=== PATIENT | male | born 1965 | race Hispanic/Latino ===

== ENCOUNTER 2021-04-12 02:14 | Inpatient (IN) | payer SELFPAY ==
[2021-04-12] MEDS ORDERED: ONDANSETRON 4 MG/2 ML INJ IV ONE (02:20)
[2021-04-12] MEDS ORDERED: NITROGLYCERIN 2% OINT 1 GM TP ONE (02:20)
[2021-04-12] MEDS ORDERED: fentaNYL 100 MCG/2 ML INJ IV ONE (02:20)
--- NOTE | 2021-04-12 02:27 | Emergency Department Report ---
HPI - General Chief Complaint: Chest Pain Time Seen by Provider: 04/12/21 02:19 - [facility] HPI: Room 2 The patient is a 55-year-old male present with a chief complaint chest pain and syncope. Patient states he developed left-sided chest pain earlier this af ternoon associated with shortness of breath and nausea without vomiting. The patient states he has had 3-4 syncopal episodes today, all occurring after he stands up to walk somewhere. EMS was called and administered aspirin and fentanyl. Patient currently gets his chest pain score of 10/10 ED Past Medical Hx - Past Medical History Hx Hypertension: Yes Hx Diabetes: Yes - Surgical History Past Surgical History?: No - Social History Smoking Status: Former Smoker Substance Use Type: None (Denies illicit drug use) - Medications Home Medications: Home Medications Medication Instructions Recorded Confirmed Last Taken Type Amlodipine/Valsartan/Hcthiazid 1 tab PO DAILY 08/21/13 08/21/13 08/20/13 History [Exforge Hct 10-160-12.5 mg Tab] HYDROcodone/APAP 7.5-325 [[place] 1 each PO Q6HR PRN #20 tablet 08/21/13 Unknown Rx 7.5/325 mg] Varenicline Tartrate [Chantix] 1 each PO DAILY 08/21/13 08/21/13 08/20/13 History buPROPion [Wellbutrin] 100 mg PO DAILY 08/21/13 08/21/13 08/20/13 History ED Review of Systems ROS: Stated complaint: STEMI Other details as noted in HPI Constitutional: no symptoms reported Eyes: denies: eye pain ENT: denies: throat pain Respiratory: shortness of breath Cardiovascular: chest pain Endocrine: no symptoms reported Gastrointestinal: abdominal pain, nausea. denies: vomiting Genitourinary: denies: dysuria Musculoskeletal: denies: back pain Neurological: denies: headache Physical Exam - Physical Exam Physical Exam: GENERAL: The patient is well-developed well-nourished male lying on stretcher not appearing to be in acute distress. [] HEENT: Normocephalic. Atraumatic. Extraocular motions are intact. Patient has moist mucous membranes. NECK: Supple. Trachea midline CHEST/LUNGS: Clear to auscultation. There is no respiratory distress noted. HEART/CARDIOVASCULAR: Regular. There is no tachycardia. There is no gallop rub or murmur. ABDOMEN: Abdomen is soft, nontender. Patient has normal bowel sounds. There is no abdominal distention. SKIN: There is no rash. There is no edema. There is no diaphoresis. NEURO: The patient is awake, alert, and oriented. The patient is cooperative. The patient has no focal neurologic deficits. The patient has normal speech. GCS 15 MUSCULOSKELETAL: There is no evidence of acute injury. ED Medical Decision Making - Lab Data Result diagrams: 04/12/21 02:25 04/12/21 02:25 - EKG Data -: EKG Interpreted by [place] EKG shows normal: sinus rhythm Rate: normal (98 bpm) - EKG Data When compared to previous EKG there are: previous EKG unavailable Interpretation: nonspecific ST-T wave kimberly, other (IVCD) - Radiology Data Radiology results: report reviewed (CT chest), image reviewed (CT chest) [facility] [place] [address] [id number] Cat Scan Report Signed Patient: LIANNE NGUYEN MR#: [id number] : 1965 Acct:[id number] Age/Sex: 55 / M ADM Date: 04/12/21 Loc: ED Attending Dr: Ordering Physician: NADIYA MELVIN MD Date of Service: 04/12/21 Procedure(s): CT angio chest Accession Number(s): [id number] cc: NADIYA MELVIN MD CTA CHEST WITH CONTRAST INDICATION / CLINICAL INFORMATION: Chest pain. . Knee and number. TECHNIQUE: Axial CT images were obtained through the chest after injection of IV contrast. 3 plane MIP and/or 3D reconstructions were produced. All CT scans at this location are performed using CT dose reduction for ALARA by means of automated exposure control. COMPARISON: CT of the abdomen and pelvis 08/21/2013 FINDINGS: VASCULAR FINDINGS: PULMONARY ARTERY: Pulmonary artery is enlarged measuring 4 cm. No filling defects compatible with pulmonary artery embolus is demonstrated.. THORACIC AORTA: No significant abnormality. CORONARY ARTERY CALCIFICATION: Moderate. NONVASCULAR FINDINGS: LOWER NECK:Soft tissues of the lower neck and thyroid demonstrate no significant abnormalities or acute findings. HEART: No significant abnormality. MEDIASTINUM / TANMAY: No significant abnormality. ESOPHAGUS: No significant abnormality. LYMPH NODES: No adenopathy within the axilla, mediastinum, or tanmay. LUNGS: No acute air space or interstitial disease. 5 mm pleural-based pulmonary nodule lateral segment right middle lobe. Nodule stable dating back to 2013. PLEURA: No pleural effusion. No pneumothorax. THORACIC SOFT TISSUES: No significant abnormality of the chest wall or upper thoracic musculature. BONES: No significant skeletal abnormalities. ADDITIONAL CHEST FINDINGS: None. UPPER ABDOMEN: No significant abnormality. Lipomatous atrophy of the pancreas. Prior cholecystectomy. IMPRESSION: 1. No CT evidence for pulmonary embolism. 2. No acute findings. 3. Single incidental pulmonary nodule(s) in the right middle lobe measuring 5 mm stable since 2013. Signer Name: Raina Ramirez II, MD Signed: 04/12/2021 4:25 AM Workstation Name: [id number] Transcribed By: ELBA Dictated By: RAINA RAMIREZ II, MD Electronically Authenticated By: RAINA RAMIREZ II, MD Signed Date/Time: 04/12/21424 DD/ 6 TD/TT: Print Cancel - Differential Diagnosis ACS, PE, pericarditis, GERD Critical care attestation.: If time is entered above; I have spent that time in minutes in the direct care of this critically ill patient, excluding procedure time. ED Disposition Clinical Impression: Chest pain, Syncope Disposition: ADMITTED INPATIENT Is pt being admited?: Yes Does the pt Need Aspirin: Yes Condition: Fair Instructions: Nonspecific Chest Pain, Adult, Syncope (ED) Time of Disposition: 04:32 (Hospitalist called (Dr. Flores)) Heart Score - HEART Score History: Moderately suspicious EKG: Non-specific Age: 45-65 Risk factors: 1-2 risk factors Troponin: < normal limit HEART Score: 4 - EKG Read Time Time EKG Completed: 02:17 EKG Read Time: 02:21
[2021-04-12 02:45] LABS: Basophils % (Auto) 0.4 % (0.0-1.8); Eosinophils # (Auto) 0.2 K/mm3 (0.0-0.4); Eosinophils % (Auto) 3.6 % (0.0-4.3); Lymphocytes # (Auto) 1.3 K/mm3 (1.2-5.4); Lymphocytes % (Auto) 19.7 % (13.4-35.0); Mean Corpuscular HGB Conc 32 % (32-34); Mean Corpuscular Volume 89 fl (84-94); Monocytes # (Auto) 0.5 K/mm3 (0.0-0.8); Monocytes % (Auto) 7.3 % (0.0-7.3); Platelet Count 195 K/mm3 (140-440); Red Blood Count 4.94 M/mm3 (3.65-5.03); Red Cell Distribution Width 14.6 % (13.2-15.2)
[2021-04-12] MEDS ORDERED: HYDROmorphone 1 MG/1 ML INJ IV ONE (02:59)
[2021-04-12 03:06] LABS: Creatine Kinase MB 1.2 ng/mL (0.0-4.0)
[2021-04-12 03:07] LABS: BUN/Creatinine Ratio 7; Blood Urea Nitrogen 7 mg/dL (9-20); Calcium 8.8 mg/dL (8.4-10.2); Hemolysis Index 6
[2021-04-12 03:15] LABS: Bilirubin,Urine NEG (Negative); Blood,Urine NEG (Negative); Color,Urine Colorless (Yellow); Mucus,Urine FEW /HPF; Protein,Urine <15 mg/dL mg/dL (Negative); Urobilinogen,Urine < 2.0 mg/dL (<2.0)
[2021-04-12 03:19] LABS: RBC,Urine < 1.0 /HPF (0.0-6.0); WBC,Urine < 1.0 /HPF (0.0-6.0)
[2021-04-12] MEDS ORDERED: SODIUM CHLORIDE 0.9% 1000 ML 1,000 ML IV ONE (03:26)
[2021-04-12] MEDS ORDERED: INSULIN REGULAR, HUMAN 100 UNITS/1 ML IV ONE (03:26)
[2021-04-12] MEDS ORDERED: MORPHINE 4 MG/1 ML INJ IV ONE (04:21)
--- NOTE | 2021-04-12 04:25 | Cat Scan Report ---
CTA CHEST WITH CONTRAST INDICATION / CLINICAL INFORMATION: Chest pain. . Knee and number. TECHNIQUE: Axial CT images were obtained through the chest after injection of IV contrast. 3 plane [place] P and/or 3D reconstructions were produced. All CT scans at this location are performed using CT dose reduction for ALARA by means of automated exposure control. COMPARISON: CT of the abdomen and pelvis 08/21/2013 FINDINGS: VASCULAR FINDINGS: PULMONARY ARTERY: Pulmonary artery is enlarged measuring 4 cm. No filling defects compatible with pul monary artery embolus is demonstrated.. THORACIC AORTA: No significant abnormality. CORONARY ARTERY CALCIFICATION: Moderate. NONVASCULAR FINDINGS: LOWER NECK:Soft tissues of the lower neck and thyroid demonstrate no significant abnormalities or acu te findings. HEART: No significant abnormality. MEDIASTINUM / MAXIMO: No significant abnormality. ESOPHAGUS: No significant abnormality. LYMPH NODES: No adenopathy within the axilla, mediastinum, or maximo. LUNGS: No acute air space or interstitial disease. 5 mm pleural-based pulmonary nodule lateral segmen t right middle lobe. Nodule stable dating back to 2013. PLEURA: No pleural effusion. No pneumothorax. THORACIC SOFT TISSUES: No significant abnormality of the chest wall or upper thoracic musculature. BONES: No significant skeletal abnormalities. ADDITIONAL CHEST FINDINGS: None. UPPER ABDOMEN: No significant abnormality. Lipomatous atrophy of the pancreas. Prior cholecystectomy. IMPRESSION: 1. No CT evidence for pulmonary embolism. 2. No acute findings. 3. Single incidental pulmonary nodule(s) in the right middle lobe measuring 5 mm stable since 2013. Signer Name: Delano Darden II, MD Signed: 04/12/2021 4:25 AM Workstation Name: [id number]
[2021-04-12] MEDS ORDERED: ASPIRIN 325 MG TAB PO ONE (04:32)
[2021-04-12] MEDS ORDERED: NITROGLYCERIN 0.4 MG TAB SUBL SL PRN (05:36)
[2021-04-12] MEDS ORDERED: ACETAMINOPHEN 325 MG TAB PO PRN (05:36)
[2021-04-12] MEDS ORDERED: traMADol 50 MG TAB PO PRN (05:36)
[2021-04-12] MEDS ORDERED: SODIUM CHLORIDE 0.9% 1000 ML 1,000 ML IV SCH (05:45)
--- NOTE | 2021-04-12 05:46 | History and Physical Report ---
History of Present Illness Date of examination: 04/12/21 Date of admission: 04/12/21 Chief complaint: Chest pain History of present illness: 55 years old male with history of hypertension and diabetes was brought to the hospital because of chest pain and syncope. Patient complained of left-sided chest pain which is 10/10 left-sided as needed shortness of breath and nausea without vomiting since this afternoon. Patient also complained of 3-4 syncopal episode today all occurring after he stands up to walk somewhere. In the emergency room initial cardiac enzyme is negative troponin is 0.010. Chest CTA shows no evidence of PE. But patient blood sugar was 884 subsequently patient was given insulin right now the blood sugar is 522. So going to admit the patient we will put the patient on chest pain pathway we also put the patient on Humalog sliding scale and consult diabetic education Past History Past Medical History: diabetes, hypertension Medications and Allergies Allergies Allergy/AdvReac Type Severity Reaction Status Date / Time No Known Allergies Allergy Verified 08/21/13 07:43 Home Medications Medication Instructions Recorded Confirmed Last Taken Type Amlodipine/Valsartan/Hcthiazid 1 tab PO DAILY 08/21/13 08/21/13 08/20/13 History [Exforge Hct 10-160-12.5 mg Tab] HYDROcodone/APAP 7.5-325 [[place] 1 each PO Q6HR PRN #20 tablet 08/21/13 Unknown Rx 7.5/325 mg] Varenicline Tartrate [Chantix] 1 each PO DAILY 08/21/13 08/21/13 08/20/13 History buPROPion [Wellbutrin] 100 mg PO DAILY 08/21/13 08/21/13 08/20/13 History Review of Systems All systems: negative Constitutional: weakness Cardiovascular: chest pain, syncope, lightheadedness Exam - Constitutional Vitals: Temp Pulse Resp BP Pulse Ox 84 19 141/83 95 04/12/21 05:20 04/12/21 05:20 04/12/21 05:20 04/12/21 05:20 General appearance: Present: no acute distress, well-nourished - EENT Eyes: Present: PERRL ENT: hearing intact, clear oral mucosa - Neck Neck: Present: supple, normal ROM - Respiratory Respiratory effort: normal Respiratory: bilateral: CTA - Cardiovascular Heart Sounds: Present: S1 & S2. Absent: rub, click - Extremities Extremities: pulses symmetrical, No edema Peripheral Pulses: within normal limits - Abdominal General gastrointestinal: Present: soft, non-tender, non-distended, normal bowel sounds Male genitourinary: Present: normal - Integumentary Integumentary: Present: clear, warm, dry - Musculoskeletal Musculoskeletal: gait normal, strength equal bilaterally - Psychiatric Psychiatric: appropriate mood/affect, intact judgment & insight - Neurologic Neurologic: CNII-XII intact, moves all extremities HEART Score - HEART Score EKG: Non-specific Age: 45-65 Risk factors: 1-2 risk factors Troponin: Troponin T < 0.010 ng/mL (0.00-0.029) 04/12/21 02:25 Troponin: < normal limit Results - Labs CBC & Chem 7: 04/12/21 02:25 04/12/21 02:25 Labs: Laboratory Last Values WBC 6.4 K/mm3 (4.5-11.0) 04/12/21 02:25 RBC 4.94 M/mm3 (3.65-5.03) 04/12/21 02:25 Hgb 14.0 gm/dl (11.8-15.2) 04/12/21 02:25 Hct 44.0 % (35.5-45.6) 04/12/21 02:25 MCV 89 fl (84-94) 04/12/21 02:25 MCH 28 pg (28-32) 04/12/21 02:25 MCHC 32 % (32-34) 04/12/21 02:25 RDW 14.6 % (13.2-15.2) 04/12/21 02:25 Plt Count 195 K/mm3 (140-440) 04/12/21 02:25 Lymph % (Auto) 19.7 % (13.4-35.0) 04/12/21 02:25 [place] % (Auto) 7.3 % (0.0-7.3) 04/12/21 02:25 Eos % (Auto) 3.6 % (0.0-4.3) 04/12/21 02:25 Baso % (Auto) 0.4 % (0.0-1.8) 04/12/21 02:25 Lymph # (Auto) 1.3 K/mm3 (1.2-5.4) 04/12/21 02:25 [place] # (Auto) 0.5 K/mm3 (0.0-0.8) 04/12/21 02:25 Eos # (Auto) 0.2 K/mm3 (0.0-0.4) 04/12/21 02:25 Baso # (Auto) 0.0 K/mm3 (0.0-0.1) 04/12/21 02:25 Seg Neutrophils % 69.0 % (40.0-70.0) 04/12/21 02:25 Seg Neutrophils # 4.4 K/mm3 (1.8-7.7) 04/12/21 02:25 D-Dimer 623.20 ng/mlDDU (0-234) H 04/12/21 02:25 VBG pH 7.349 (7.320-7.420) 04/12/21 02:25 Sodium 137 mmol/L (137-145) 04/12/21 02:25 Potassium 3.6 mmol/L (3.6-5.0) 04/12/21 02:25 Chloride 99.3 mmol/L (98-107) 04/12/21 02:25 Carbon Dioxide 18 mmol/L (22-30) L 04/12/21 02:25 Anion Gap 23 mmol/L 04/12/21 02:25 BUN 7 mg/dL (9-20) L 04/12/21 02:25 Creatinine 1.0 mg/dL (0.8-1.3) 04/12/21 02:25 Estimated GFR > 60 ml/min 04/12/21 02:25 BUN/Creatinine Ratio 7 % 04/12/21 02:25 Glucose 884 mg/dL (75-100) H* 04/12/21 02:25 POC Glucose 522 mg/dL (70-105) H 04/12/21 05:17 Calcium 8.8 mg/dL (8.4-10.2) 04/12/21 02:25 Total Creatine Kinase 61 units/L (55-170) 04/12/21 02:25 CK-MB (CK-2) 1.2 ng/mL (0.0-4.0) 04/12/21 02:25 CK-MB (CK-2) Rel Index 1.9 (0-4) 04/12/21 02:25 Troponin T < 0.010 ng/mL (0.00-0.029) 04/12/21 02:25 Urine Color Colorless (Yellow) 04/12/21 Unknown Urine Turbidity Clear (Clear) 04/12/21 Unknown Urine pH 6.0 (5.0-7.0) 04/12/21 Unknown Ur Specific [place] 1.025 (1.003-1.030) 04/12/21 Unknown Urine Protein <15 mg/dl mg/dL (Negative) 04/12/21 Unknown Urine Glucose (UA) >=500 mg/dL (Negative) 04/12/21 Unknown Urine Ketones Neg mg/dL (Negative) 04/12/21 Unknown Urine Blood Neg (Negative) 04/12/21 Unknown Urine Nitrite Neg (Negative) 04/12/21 Unknown Urine Bilirubin Neg (Negative) 04/12/21 Unknown Urine Urobilinogen < 2.0 mg/dL (<2.0) 04/12/21 Unknown Ur Leukocyte Esterase Neg (Negative) 04/12/21 Unknown Urine WBC (Auto) < 1.0 /HPF (0.0-6.0) 04/12/21 Unknown Urine RBC (Auto) < 1.0 /HPF (0.0-6.0) 04/12/21 Unknown Urine Mucus Few /HPF 04/12/21 Unknown - Imaging and Cardiology CT scan - chest: report reviewed Assessment and Plan VTE prophylaxis?: Chemical Plan of care discussed with patient/family: Yes - Patient Problems (1) ACS (acute coronary syndrome) Current Visit: Yes Status: Acute Plan to address problem: Admit the patient to the medical telemetry. Aspirin 325 mg p.o. daily. Lipitor 40 mg p.o. daily. Normal saline at the rate of 100 cc/h. Serial cardiac enzyme. Echocardiogram. Consult cardiology if needed (2) Hypertension Current Visit: Yes Status: Acute Plan to address problem: Hydralazine 10 mg IV every 6 hours as needed. We continue the home medication (3) Diabetes Current Visit: Yes Status: Acute Plan to address problem: Humalog sliding scale Accu-Chek every 6 hours with high dose insulin coverage. Diabetic education (4) Syncope Current Visit: Yes Status: Acute Plan to address problem: Aspirin 325 mg p.o. daily. Lipitor 40 mg p.o. daily. Normal saline at the rate of 100 cc/h. Serial cardiac enzyme. Echocardiogram. Consult cardiology if needed (5) DVT prophylaxis Current Visit: Yes Status: Acute Plan to address problem: Heparin 5000 units subcu every 8 hours for DVT prophylaxis. Protonix 40 mg p.o. daily for GI prophylaxis. Patient is a full code
[2021-04-12] MEDS ORDERED: DEXTROSE 10% *Hypoglycemia IV PRN (05:51)
[2021-04-12] MEDS: INSULIN LISPRO 100 UNIT/ML SUB-Q SCH ×2 (06:27→13:50)
[2021-04-12] MEDS: MORPHINE 2 MG/1 ML INJ IV PRN ×4 (06:32→20:13)
--- NOTE | 2021-04-12 09:04 | Electrocardiograph Report ---
[facility] [place] Test Date: 2021-04-12 Test Time: 02:17:25 Pat Name: LIANNE NGUYEN Department: Room: A464 Gender: M [place] Worker: JESSICA : 1965 Requested By: NADIYA MELVIN Order Number: [id number] Reading MD: Jimbo Zarate Measurements Intervals [place] Rate: 98 P: 30 [place]: 155 QRS: -85 QRSD: 157 T: 60 QT: 385 QTc: 491 Interpretive Statements Sinus rhythm RBBB and LAFB ST elevation secondary to IVCD No previous ECG available for comparison Electronically Signed On 04-12-2021 9:04:31 EST by Jimbo Zarate
[2021-04-12] MEDS ORDERED: VARENICLINE TARTRATE PO SCH (10:00)
[2021-04-12] MEDS ORDERED: VALSARTAN PO SCH (10:00)
[2021-04-12] MEDS ORDERED: AMLODIPINE PO SCH (10:00)
[2021-04-12] MEDS ORDERED: [UNRECOGNIZED DRUG - OTHER] PO SCH (10:00)
[2021-04-12] MEDS ORDERED: HCTHIAZID PO SCH (10:00)
[2021-04-12] MEDS: amLODIPine 10 MG TAB PO SCH (10:10)
[2021-04-12] MEDS: hydroCHLOROthiazide 12.5 MG CAP PO SCH (10:10)
[2021-04-12] MEDS: PANTOPRAZOLE 40 MG TAB PO SCH (10:10)
[2021-04-12] MEDS: VALSARTAN 160MG TAB PO SCH (10:10)
[2021-04-12] MEDS ORDERED: DEXTROSE 50% IN WATER (25GM) 50 ML SYRINGE IV PRN (12:31)
--- NOTE | 2021-04-12 12:31 | Event Note ---
Date: 04/12/21 The patient was seen and evaluated this morning, and he was found to be hemodynamically stable. The patient had been weaned off of supplemental oxygen. The patient is currently pending TTE to evaluate EF function, bilateral lower extremity Dopplers to further rule out DVT, coronavirus PCR, and cardiology evaluation.
--- NOTE | 2021-04-12 12:59 | Vascular Lab Report ---
DUPLEX DOPPLER LOWER EXTREMITY VEINS, BILATERAL INDICATION / CLINICAL INFORMATION: Concern for lower extremity DVT. TECHNIQUE: Duplex doppler imaging was performed through the veins of both lower extremities using yeny ous compression and other maneuvers. COMPARISON: None available. FINDINGS: RIGHT COMMON FEMORAL VEIN: Negative. RIGHT FEMORAL VEIN: Negative. RIGHT POPLITEAL VEIN: Negative. RIGHT CALF VEINS: Negative. LEFT COMMON FEMORAL VEIN: Negative. LEFT FEMORAL VEIN: Negative. LEFT POPLITEAL VEIN: Negative. LEFT CALF VEINS: Negative. ADDITIONAL FINDINGS: None. IMPRESSION: 1. No sonographic evidence for DVT in either lower extremity. Scribed by: Gita Basurto RDMS, RVT Scribed: 04/12/2021 10:37 AM I have reviewed the images, agree with this report, and edited this report as needed. Signer Name: Ramesh Gong MD Signed: 04/12/2021 12:54 PM Workstation Name: [id number]
--- NOTE | 2021-04-12 13:25 | Consultation ---
History of Present Illness Consult date: 04/12/21 Requesting physician: JOSELUIS NUÑEZ Consult reason: chest pain History of present illness: Patient is 55-year-old male with a past medical history of hypertension and diabetes who came to the ED with a complaint of chest pain and syncope with falls which started yesterday morning when getting out of bed. Patient reports that when he tried to get up out of bed yesterday he developed sudden chest pain that he describes as sharp and stabbing and he rated his pain 10 out of 10. He associated his pain with some shortness of breath and slight nausea. He reports he has had no relieving factors. And states the pain is worsened with palpation and deep breathing. Patient also reports that yesterday throughout the day he passed out around 3-4 time while walking around. Patient called EMS and was transported to [facility]. In the ED patient was noted to have blood sugar of 884 and troponins negative x1. At time of interview patient denies palpitations, diaphoresis, vomiting, or weakness. Patient was previously seen by Dr. Zarate of our group but has not been seen since 2018. Cardiology is consulted for chest pain. Past History Past Medical History: diabetes, hypertension Past Surgical History: No surgical history Social history: no significant social history Family history: diabetes Medications and Allergies Allergies Allergy/AdvReac Type Severity Reaction Status Date / Time No Known Allergies Allergy Verified 04/12/21 12:21 Home Medications Medication Instructions Recorded Confirmed Last Taken Type Insulin NPH Hum/Reg Insulin Hm 20 unit SQ QID 04/12/21 04/12/21 Unknown History [Novolin 70-30 100 Unit/ml Vial] amLODIPine/VALSARTAN [Exforge 1 tab PO DAILY 04/12/21 04/12/21 Unknown History 10-160 mg Tablet] cloNIDine [Catapres] 0.2 mg PO BID 04/12/21 04/12/21 Unknown History hydroCHLOROthiazide 12.5 mg PO QDAY 04/12/21 04/12/21 Unknown History [Hydrochlorothiazide] Active Meds: Active Medications Acetaminophen (Acetaminophen 325 Mg Tab) 650 mg PO Q6H PRN PRN Reason: Pain, Mild (1-3) Amlodipine Besylate (Amlodipine 10 Mg Tab) 10 mg PO DAILY KIAH Last Admin: 04/12/21 10:10 Dose: Not Given Aspirin (Aspirin Ec 325 Mg Tab) 325 mg PO QDAY [facility] Atorvastatin Calcium (Atorvastatin 40 Mg Tab) 40 mg PO QHS [facility] Dextrose (Dextrose 10% *Hypoglycemia) 0 ml IV DIRECT PRN; Protocol PRN Reason: Hypoglycemia Hydrochlorothiazide (Hydrochlorothiazide 12.5 Mg Cap) 12.5 mg PO QDAY [facility] Last Admin: 04/12/21 10:10 Dose: Not Given Sodium Chloride (Nacl 0.9% 1000 Ml) 1,000 mls @ 75 mls/hr IV DIRECT [facility] Insulin Human Isoph/Insulin Regular (Insulin Nph/Regular 70/30 Inj) 20 unit SUB-Q BIDDIAB [facility] Insulin Human Regular (Insulin Regular, Human 100 Units/1 Ml) 0 units SUB-Q ACH S [facility]; Protocol Miscellaneous Medication (Varenicline Tartrate [Chantix]) 1 each PO DAILY [facility] Last Admin: 04/12/21 10:10 Dose: Not Given Morphine Sulfate (Morphine 2 Mg/1 Ml Inj) 2 mg IV Q4H PRN PRN Reason: Pain , Severe (7-10) Nitroglycerin (Nitroglycerin 0.4 Mg Tab Subl) 0.4 mg SL Q5M PRN PRN Reason: Chest Pain Pantoprazole Sodium (Pantoprazole 40 Mg Tab) 40 mg PO QDAY [facility] Last Admin: 04/12/21 10:10 Dose: Not Given Sodium Chloride (Sodium Chloride 0.9% 10 Ml Flush Syringe) 10 ml IV PRN PRN PRN Reason: LINE FLUSH Tramadol HCl (Tramadol 50 Mg Tab) 50 mg PO Q6H PRN PRN Reason: Pain, Moderate (4-6) Valsartan (Valsartan 160mg Tab) 160 mg PO QDAY [facility] Last Admin: 04/12/21 10:10 Dose: Not Given Review of Systems Constitutional: no weight loss, no weight gain Ears, nose, mouth and throat: no nasal discharge, no sinus pressure, no sinus pain Cardiovascular: chest pain, shortness of breath Respiratory: shortness of breath, dyspnea on exertion, no cough, no cough with sputum Gastrointestinal: nausea, no abdominal pain, no vomiting, no diarrhea Musculoskeletal: no neck stiffness, no neck pain Integumentary: no rash, no pruritis, no redness Neurological: syncope, no head injury, no transient paralysis Psychiatric: no anxiety, no memory loss Endocrine: no cold intolerance, no heat intolerance Hematologic/Lymphatic: no easy bruising, no easy bleeding Physical Examination Vital Signs Pulse Resp BP Pulse Ox 99 H 19 155/98 97 04/12/21 02:14 04/12/21 02:14 04/12/21 02:14 04/12/21 02:14 General appearance: no acute distress HEENT: Positive: PERRL Neck: Positive: trachea midline Cardiac: Positive: Reg Rate and Rhythm Lungs: Positive: Normal Breath Sounds Neuro: Positive: Grossly Intact Abdomen: Positive: Soft, Active Bowel Sounds Skin: Negative: Rash, Suspicious Lesions, Ulceration Extremities: Present: upper extr. pulses. Absent: edema Results 04/12/21 02:25 04/12/21 02:25 Cardiac Enzymes 04/12/21 Range/Units 02:25 CK-MB (CK-2) 1.2 (0.0-4.0) ng/mL CBC 04/12/21 Range/Units 02:25 WBC 6.4 (4.5-11.0) K/mm3 RBC 4.94 (3.65-5.03) M/mm3 Hgb 14.0 (11.8-15.2) gm/dl Hct 44.0 (35.5-45.6) % Plt Count 195 (140-440) K/mm3 Lymph # (Auto) 1.3 (1.2-5.4) K/mm3 [place] # (Auto) 0.5 (0.0-0.8) K/mm3 Eos # (Auto) 0.2 (0.0-0.4) K/mm3 Baso # (Auto) 0.0 (0.0-0.1) K/mm3 Comprehensive Metabolic Panel 04/12/21 Range/Units 02:25 Sodium 137 (137-145) mmol/L Potassium 3.6 (3.6-5.0) mmol/L Chloride 99.3 (98-107) mmol/L Carbon Dioxide 18 L (22-30) mmol/L BUN 7 L (9-20) mg/dL Creatinine 1.0 (0.8-1.3) mg/dL Glucose 884 H* (75-100) mg/dL Calcium 8.8 (8.4-10.2) mg/dL - Imaging and Cardiology Echo: pending, report reviewed EKG interpretations - Telemetry EKG Rhythm: Sinus Rhythm - EKG Sinus rhythms and dysrhythmias: sinus rhythm AV and intraventricular conduction: right bundle branch block, left anterior fascicular Assessment and Plan Patient is 55-year-old male with a past medical history of hypertension and diabetes who came to the ED with a complaint of chest pain and syncope with falls which started when getting out of bed 1 day prior to admission Atypical chest pain Hypertension Diabetes Elevated D-dimer-CT negative for PE Echo 12/17/2017-EF greater than 55%. Right ventricular systolic function is normal. Mild aortic regurgitation. Mild tricuspid regurgitation. Exercise stress test 03/12/2007: Negative nonischemic exercise stress test characterized by 1) adequate exercise capacity. The subject achieving 96% of his maximum predicted heart rate at an external work load of 11.8 mets. 2) Normal heart rate and BP response. 3) Absence of ischemic symptoms or diagnostic repolarization abnormalities. 4) Minor ventricular ectopy as described Plan: EKG shows sinus rhythm [address] elevation secondary to IVCD. No acute ischemic changes. Troponins negative x 1 repeat cardiac enzymes Chest pain is atypical and no relief with nitro glycerin and worsened with palpitation and deep breathing Agree with resumption of amlodipine, valsartan, hydrochlorothiazide Echo pending Patient for stress test in the a.m. N.p.o. after midnight Patient seen in conjunction with Dr. Zarate who agrees with this plan of care
[2021-04-12 14:15] LABS: Chol/HDL Ratio 4.23 %
[2021-04-12] MEDS: SODIUM CHLORIDE 0.9% 1000 ML 1,000 ML IV SCH (14:21)
[2021-04-12] MEDS: INSULIN REGULAR, HUMAN 100 UNITS/1 ML SUB-Q SCH ×2 (17:47→21:53)
[2021-04-12] MEDS: INSULIN NPH/REGULAR 70/30 INJ SUB-Q SCH (18:23)
[2021-04-13] MEDS: MORPHINE 2 MG/1 ML INJ IV PRN ×4 (00:12→20:36)
[2021-04-13] MEDS: SODIUM CHLORIDE 0.9% 1000 ML 1,000 ML IV SCH ×2 (04:24→22:43)
[2021-04-13] MEDS ORDERED: REGADENOSON 0.4 MG/5 ML INJ IV ONE (07:00)
[2021-04-13] MEDS: INSULIN REGULAR, HUMAN 100 UNITS/1 ML SUB-Q SCH ×4 (09:00→22:43)
--- NOTE | 2021-04-13 10:01 | Electrocardiograph Report ---
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
[2021-04-13] MEDS: INSULIN NPH/REGULAR 70/30 INJ SUB-Q SCH ×2 (10:43→20:39)
[2021-04-13] MEDS: VALSARTAN 160MG TAB PO SCH (11:27)
[2021-04-13] MEDS: ASPIRIN EC 325 MG TAB PO SCH (11:28)
[2021-04-13] MEDS: hydroCHLOROthiazide 12.5 MG CAP PO SCH (11:28)
[2021-04-13] MEDS: PANTOPRAZOLE 40 MG TAB PO SCH (11:28)
[2021-04-13] MEDS: amLODIPine 10 MG TAB PO SCH (11:29)
--- NOTE | 2021-04-13 11:34 | Progress Note ---
Assessment and Plan Patient is 55-year-old male with a past medical history of hypertension and diabetes who came to the ED with a complaint of chest pain and syncope with falls which started when getting out of bed 1 day prior to admission Atypical chest pain Hypertension Diabetes Elevated D-dimer-CT negative for PE Echo 04/12/2021-EF 45 to 50%. There is hypokinesis in the basal inferior septal wall. Mild concentric LVH. Transmitral Doppler flow pattern suggests impaired LV relaxation. Right ventricle is dilated. Right ventricular systolic function is no pericardial effusion Lexiscan MPI stress test 04/13/2021-abnormal stress test Echo 12/17/2017-EF greater than 55%. Right ventricular systolic function is normal. Mild aortic regurgitation. Mild tricuspid regurgitation. Exercise stress test 03/12/2007: Negative nonischemic exercise stress test characterized by 1) adequate exercise capacity. The subject achieving 96% of his maximum predicted heart rate at an external work load of 11.8 mets. 2) Normal heart rate and BP response. 3) Absence of ischemic symptoms or diagnostic repolarization abnormalities. 4) Minor ventricular ectopy as described Plan: EKG shows sinus rhythm [address] elevation secondary to IVCD. No acute ischemic changes. Troponins negative x 2. AMI ruled out Chest pain is atypical and no relief with nitro glycerin and worsened with palpitation and deep breathing Continue amlodipine, valsartan, hydrochlorothiazide, statin, aspirin Echo and stress test results noted above Due to abnormal stress test will plan for cardiac cath in the AM. N.p.o. after midnight Discussed plan of care with patient who verbalized and acknowledged understanding and agreement Patient seen in conjunction with Dr. Zarate who agrees with this plan of care - Patient Problems (1) ACS (acute coronary syndrome) Current Visit: Yes Status: Acute (2) Diabetes Current Visit: Yes Status: Acute (3) Hypertension Current Visit: Yes Status: Acute (4) Syncope Current Visit: Yes Status: Acute Subjective Date of service: 04/13/21 Principal diagnosis: chest pain Interval history: Patient for stress test this a.m. Patient was not on the monitor Objective Vital Signs Temp Pulse Resp BP Pulse Ox 04/13/21 09:47 171/91 04/13/21 09:45 174/91 04/13/21 09:43 162/88 04/13/21 09:42 171/97 04/13/21 09:40 156/89 04/13/21 09:10 155/84 04/13/21 08:51 154/83 04/13/21 07:55 97.4 F L 62 20 143/73 95 04/13/21 05:15 97.5 F L 65 6 L 140/80 97 04/13/21 01:09 98 04/13/21 00:42 20 04/12/21 23:35 97.5 F L 71 16 146/88 98 04/12/21 22:00 93 H 04/12/21 20:43 20 04/12/21 20:13 20 04/12/21 19:50 97.7 F 71 16 149/82 94 04/12/21 16:30 98 04/12/21 15:30 98.3 F 82 20 130/84 95 04/12/21 12:02 97.3 F L 71 20 128/72 95 - Physical Examination General: No Apparent Distress HEENT: Positive: PERRL Neck: Positive: trachea midline Cardiac: Positive: Reg Rate and Rhythm Neuro: Positive: Grossly Intact Abdomen: Positive: Soft, Active Bowel Sounds Skin: Negative: Rash, Suspicious Lesions, Ulceration Extremities: Present: upper extr. pulses. Absent: edema - Labs and Meds Lipids 04/12/21 Range/Units 13:19 Triglycerides 244 H (2-149) mg/dL Cholesterol 161 (50-199) mg/dL HDL Cholesterol 38 L (40-59) mg/dL Cholesterol/HDL Ratio 4.23 % - Imaging and Cardiology Echo: report reviewed - EKG Sinus rhythms and dysrhythmias: sinus rhythm AV and intraventricular conduction: right bundle branch block, left anterior fascicular
[2021-04-13] MEDS ORDERED: SODIUM CHLORIDE 0.9% 500 ML 500 ML IV SCH (12:00)
--- NOTE | 2021-04-13 13:01 | Treadmill Report ---
DATE OF SERVICE: 04/13/2021 NUCLEAR PERFUSION SCAN REFERRING PHYSICIAN: [facility]. PROTOCOL: The patient was assessed in postabsorptive state, given 10 mCi of technetium at rest. The patient had rest imaging. The patient underwent Lexiscan stress test per standard protocol. At peak stress, the patient given 26 mCi technetium. Shortly thereafter, the patient had stress imaging. Raw imaging reveals significant GI artifact, no motion artifact. There is a questionable moderate size reversible inferior defect, questionable GI artifact versus ischemia. Gated wall motion reveals normal systolic thickening, calculated ejection fraction 58% without TID. CONCLUSIONS: 1. Technically difficult study, but mildly abnormal with a medium size inferior reversible defect of unclear etiology, questionable mild ischemia. 2. Preserved left ventricular systolic performance. TID: [id number] RECEIPT: [id number] YUDITH/ALECIA
--- NOTE | 2021-04-13 16:40 | Progress Note ---
Assessment and Plan Assessment and plan: #Acute chest pain #Hypertension -Negative troponins x2 -TTE (04/12/2021) revealing EF 45-50% with hypokinesis in the basal inferior septal wall, mild concentric LVH, and Doppler flow pattern suggest impaired LV relaxation. Right ventricle is dilated. -Myocardial perfusion stress test (04/13/2021) revealed an abnormal stress test -Cardiology consulted; appreciate recs -Planning to have left heart catheterization in the morning -Continue amlodipine 10 mg daily, atorvastatin 40 mg daily, hydrochlorothiazide 12.5 mg daily, and valsartan 160 mg daily -Continue to monitor #Insulin dependent type II diabetes mellitus - hemoglobin A1c: 10.9 - home regimen: NPH 70-30 20 units daily - current regimen: NPH 70-30 30 twice daily and moderate SSI - blood glucose goal 140-180 while inpatient - continue to monitor #Morbid obesity #Weight loss counseling #Exercise counseling - BMI 39.7 - Counseled patient on the importance of weight loss, incorporating exercise, and dietary changes (lean meats, fresh fruits and vegetables, and water intake). Patient expresses understanding. - Time: +15 min #Advanced care planning -Disease education conducted, care plan discussed, diagnoses discussed, prognosis discussed, and patient acknowledges understanding with care plan -Time: +30 min Disposition Plan: Continue medical management Total Time Spent with Patient (Minutes): 45 minutes History Interval history: No acute events overnight. Hospitalist Physical - Constitutional Vitals: Temp Pulse Resp BP Pulse Ox 97.4 F L 72 20 171/91 95 04/13/21 07:55 04/13/21 11:29 04/13/21 07:55 04/13/21 09:47 04/13/21 07:55 General appearance: Present: no acute distress - EENT Eyes: Present: PERRL, EOM intact ENT: hearing intact, clear oral mucosa, dentition normal - Neck Neck: Present: supple, normal ROM - Respiratory Respiratory effort: normal Respiratory: bilateral: CTA - Cardiovascular Rhythm: regular Heart Sounds: Present: S1 & S2 - Extremities Extremities: no ischemia, pulses intact, pulses symmetrical, No edema, normal temperature, normal color, Full ROM Peripheral Pulses: within normal limits - Abdominal General gastrointestinal: soft, non-tender, non-distended, normal bowel sounds - Integumentary Integumentary: Present: clear, warm, dry - Psychiatric Psychiatric: appropriate mood/affect, intact judgment & insight, memory intact, cooperative - Neurologic Neurologic: CNII-XII intact, moves all extremities - Allied Health Allied health notes reviewed: nursing HEART Score - HEART Score EKG: Non-specific Age: 45-65 Risk factors: 1-2 risk factors Troponin: Troponin T < 0.010 ng/mL (0.00-0.029) 04/12/21 13:19 Troponin: < normal limit Results - Labs CBC & Chem 7: 04/12/21 02:25 04/12/21 02:25 Labs: Laboratory Last Values WBC 6.4 K/mm3 (4.5-11.0) 04/12/21 02:25 RBC 4.94 M/mm3 (3.65-5.03) 04/12/21 02:25 Hgb 14.0 gm/dl (11.8-15.2) 04/12/21 02:25 Hct 44.0 % (35.5-45.6) 04/12/21 02:25 MCV 89 fl (84-94) 04/12/21 02:25 MCH 28 pg (28-32) 04/12/21 02:25 MCHC 32 % (32-34) 04/12/21 02:25 RDW 14.6 % (13.2-15.2) 04/12/21 02:25 Plt Count 195 K/mm3 (140-440) 04/12/21 02:25 Lymph % (Auto) 19.7 % (13.4-35.0) 04/12/21 02:25 [place] % (Auto) 7.3 % (0.0-7.3) 04/12/21 02:25 Eos % (Auto) 3.6 % (0.0-4.3) 04/12/21 02:25 Baso % (Auto) 0.4 % (0.0-1.8) 04/12/21 02:25 Lymph # (Auto) 1.3 K/mm3 (1.2-5.4) 04/12/21 02:25 [place] # (Auto) 0.5 K/mm3 (0.0-0.8) 04/12/21 02:25 Eos # (Auto) 0.2 K/mm3 (0.0-0.4) 04/12/21 02:25 Baso # (Auto) 0.0 K/mm3 (0.0-0.1) 04/12/21 02:25 Seg Neutrophils % 69.0 % (40.0-70.0) 04/12/21 02:25 Seg Neutrophils # 4.4 K/mm3 (1.8-7.7) 04/12/21 02:25 D-Dimer 623.20 ng/mlDDU (0-234) H 04/12/21 02:25 VBG pH 7.349 (7.320-7.420) 04/12/21 02:25 Sodium 137 mmol/L (137-145) 04/12/21 02:25 Potassium 3.6 mmol/L (3.6-5.0) 04/12/21 02:25 Chloride 99.3 mmol/L (98-107) 04/12/21 02:25 Carbon Dioxide 18 mmol/L (22-30) L 04/12/21 02:25 Anion Gap 23 mmol/L 04/12/21 02:25 BUN 7 mg/dL (9-20) L 04/12/21 02:25 Creatinine 1.0 mg/dL (0.8-1.3) 04/12/21 02:25 Estimated GFR > 60 ml/min 04/12/21 02:25 BUN/Creatinine Ratio 7 % 04/12/21 02:25 Glucose 884 mg/dL (75-100) H* 04/12/21 02:25 POC Glucose 353 mg/dL (70-105) H 04/13/21 15:33 Hemoglobin A1c 10.9 % (4-6) H 04/12/21 13:19 Calcium 8.8 mg/dL (8.4-10.2) 04/12/21 02:25 Total Creatine Kinase 61 units/L (55-170) 04/12/21 02:25 CK-MB (CK-2) 1.2 ng/mL (0.0-4.0) 04/12/21 02:25 CK-MB (CK-2) Rel Index 1.9 (0-4) 04/12/21 02:25 Troponin T < 0.010 ng/mL (0.00-0.029) 04/12/21 13:19 Triglycerides 244 mg/dL (2-149) H 04/12/21 13:19 Cholesterol 161 mg/dL (50-199) 04/12/21 13:19 LDL Cholesterol Direct 88 mg/dL (50-130) 04/12/21 13:19 HDL Cholesterol 38 mg/dL (40-59) L 04/12/21 13:19 Cholesterol/HDL Ratio 4.23 % 04/12/21 13:19 Urine Color Colorless (Yellow) 04/12/21 Unknown Urine Turbidity Clear (Clear) 04/12/21 Unknown Urine pH 6.0 (5.0-7.0) 04/12/21 Unknown Ur Specific [place] 1.025 (1.003-1.030) 04/12/21 Unknown Urine Protein <15 mg/dl mg/dL (Negative) 04/12/21 Unknown Urine Glucose (UA) >=500 mg/dL (Negative) 04/12/21 Unknown Urine Ketones Neg mg/dL (Negative) 04/12/21 Unknown Urine Blood Neg (Negative) 04/12/21 Unknown Urine Nitrite Neg (Negative) 04/12/21 Unknown Urine Bilirubin Neg (Negative) 04/12/21 Unknown Urine Urobilinogen < 2.0 mg/dL (<2.0) 04/12/21 Unknown Ur Leukocyte Esterase Neg (Negative) 04/12/21 Unknown Urine WBC (Auto) < 1.0 /HPF (0.0-6.0) 04/12/21 Unknown Urine RBC (Auto) < 1.0 /HPF (0.0-6.0) 04/12/21 Unknown Urine Mucus Few /HPF 04/12/21 Unknown Coronavirus (PCR) Negative (Negative) 04/12/21 09:50 Rod/IV: Voiding Method Toilet Active Medications - Current Medications Current Medications: Generic Name Dose Route Start Last Admin Trade Name Freq PRN Reason Stop Dose Admin Acetaminophen 650 mg 04/12/21 05:36 Acetaminophen 325 Mg Tab PO Q6H PRN Pain, Mild (1-3) Amlodipine Besylate 10 mg 04/12/21 10:00 04/13/21 11:29 Amlodipine 10 Mg Tab PO 10 mg DAILY KIAH Administration Aspirin 325 mg 04/13/21 10:00 04/13/21 11:28 Aspirin Ec 325 Mg Tab PO 325 mg QDAY KIAH Administration Atorvastatin Calcium 40 mg 04/12/21 22:00 04/12/21 21:53 Atorvastatin 40 Mg Tab PO 40 mg QHS KIAH Administration Dextrose 0 ml 04/12/21 05:51 Dextrose 10% *Hypoglycemia IV DIRECT PRN Hypoglycemia Protocol Hydrochlorothiazide 12.5 mg 04/12/21 10:00 04/13/21 11:28 Hydrochlorothiazide 12.5 Mg Cap PO 12.5 mg QDAY KIAH Administration Sodium Chloride 1,000 mls @ 75 mls/hr 04/12/21 13:00 04/13/21 04:24 Nacl 0.9% 1000 Ml IV 75 mls/hr DIRECT KIAH Administration Sodium Chloride 500 mls @ 50 mls/hr 04/13/21 12:00 Nacl 0.9% 500 Ml IV 04/13/21 21:59 DIRECT KIAH Insulin Human Isoph/Insulin Regular 30 unit 04/13/21 16:28 Insulin Nph/Regular 70/30 Inj SUB-Q BIDDIAB KIAH Insulin Human Regular 0 units 04/12/21 16:30 04/13/21 11:36 Insulin Regular, Human 100 Units/1 Ml SUB-Q 8 units ACHS KIAH Administration Protocol Miscellaneous Medication 1 each 04/12/21 10:00 04/12/21 10:10 Varenicline Tartrate [Chantix] PO Not Given DAILY KIAH Morphine Sulfate 2 mg 04/12/21 10:31 04/13/21 15:09 Morphine 2 Mg/1 Ml Inj IV 2 mg Q4H PRN Administration Pain , Severe (7-10) Nitroglycerin 0.4 mg 04/12/21 05:36 Nitroglycerin 0.4 Mg Tab Subl SL Q5M PRN Chest Pain Pantoprazole Sodium 40 mg 04/12/21 10:00 04/13/21 11:28 Pantoprazole 40 Mg Tab PO 40 mg QDAY KIAH Administration Sodium Chloride 10 ml 04/12/21 05:36 Sodium Chloride 0.9% 10 Ml Flush Syringe IV PRN PRN LINE FLUSH Tramadol HCl 50 mg 04/12/21 05:36 Tramadol 50 Mg Tab PO Q6H PRN Pain, Moderate (4-6) Valsartan 160 mg 04/12/21 10:00 04/13/21 11:27 Valsartan 160mg Tab PO 160 mg QDAY KIAH Administration Nutrition/Malnutrition Assess - Dietary Evaluation Nutrition/Malnutrition Findings: Nutrition Notes Start: 04/12/21 12:05 Freq: Status: Active Protocol: Document 04/12/21 12:05 IVETTE (Rec: 04/12/21 12:24 IVETTE [id number]) Nutrition Notes Need for Assessment generated from: MD Order,Education Initial or Follow up Assessment Current Diagnosis Coronary Artery Disease, Diabetes,Hypertension Other Pertinent Diagnosis Acute Coronary Syndrome, Syncope, Chest Pain. Current Diet NPO (from 04/13 00:01). Labs/Tests 04/12: CO2 18, BUN 7, Glu 884. Pertinent Medications 04/12: Insulin, others nutritionally unremarkable. Height 5 ft 11 in Weight 129.274 kg [place] Body Weight (kg) 78.18 BMI 39.7 Weight change and time frame None reported at admission. Weight Status Obese Subjective/Other Information RD consult for Nutrition Education. No report available on Pt's PO intake of meals at the time. Pt currently on Cardiac/ Consistent Carbohydratyes Diet for today only, will be NPO from 04/13 00:01. Pt still on critical condition , not a candidate for Nutrition Education at the time, will assess feasibility on F/U. Percent of energy/protein needs met: Pt will be NPO from 04/13 00: 01. Burn Absent Trauma Absent GI Symptoms Nausea Food Allergy No Skin Integrity/Comment Clear, warm, dry. Minimum of two criteria No Is patient on ventilator? No Is Patient Ambulatory and/or Out of Bed Yes REE-([facility]-ambulatory/OOB) [ 2781.831 NUTR.MSJOOB] Kcal/Kg value to use for calculation 14 Approximate Energy Requirements Using 1810 kcal/Kg Calculation Used for Recommendations Kcal/kg Additional Notes Protein: 0.8-1 g/Kg; 83-104 g/ day. Fluids: 1 ml/Kcal, or as per MD. Nutrition Intervention Follow-Up By: 04/19/21 Additional Comments Nutrition education will be provided on F/U, if feasible. When pertinent, monitor food tolerance, %PO intake of meals , and BM.
[2021-04-14] MEDS: MORPHINE 2 MG/1 ML INJ IV PRN ×2 (01:13→05:32)
[2021-04-14 06:36] LABS: Basophils # (Auto) 0.1 K/mm3 (0.0-0.1); Basophils % (Auto) 0.7 % (0.0-1.8); Eosinophils # (Auto) 0.3 K/mm3 (0.0-0.4); Eosinophils % (Auto) 4.3 % (0.0-4.3); Hemoglobin 13.3 gm/dl (11.8-15.2); Lymphocytes # (Auto) 2.6 K/mm3 (1.2-5.4); Lymphocytes % (Auto) 32.5 % (13.4-35.0); Mean Corpuscular HGB Conc 34 % (32-34); Mean Corpuscular Volume 84 fl (84-94); Monocytes # (Auto) 0.6 K/mm3 (0.0-0.8); Monocytes % (Auto) 7.1 % (0.0-7.3); Platelet Count 197 K/mm3 (140-440); Red Blood Count 4.64 M/mm3 (3.65-5.03); Red Cell Distribution Width 14.4 % (13.2-15.2)
[2021-04-14 06:53] LABS: Blood Urea Nitrogen 7 mg/dL (9-20); Calcium 8.3 mg/dL (8.4-10.2); Hemolysis Index 6; INR 0.94 (0.87-1.13)
[2021-04-14 07:01] LABS: BUN/Creatinine Ratio 10
[2021-04-14] MEDS ORDERED: POTASSIUM CHLORIDE ER 20 MEQ TAB PO NR ×2 (08:24→12:30)
[2021-04-14] MEDS ORDERED: POTASSIUM CHLORIDE ER 20 MEQ TAB PO ONE (08:36)
[2021-04-14 08:52] VITALS: BP 142/73
[2021-04-14] MEDS ORDERED: POTASSIUM CHLORIDE 10 MEQ 10 MEQ/100 ML BAG IV ONE (09:00)
[2021-04-14] MEDS ORDERED: CALCIUM CHLORIDE 1,000 MG in SODIUM CHLORIDE 0.9% 100 ML IV ONE (09:00)
[2021-04-14] MEDS ORDERED: HEPARIN 10,000 UNITS/10 ML VIAL ONE (09:11)
[2021-04-14] MEDS ORDERED: HEPARIN/NS 5000 UNIT/500ML 1,000 ML IR ONE (09:11)
[2021-04-14] MEDS ORDERED: MIDAZOLAM 2 MG/2 ML INJ ONE (09:12)
[2021-04-14] MEDS ORDERED: LIDOCAINE (2%) 20 MG/1 ML VIAL 20 ML MDV INFILTRATI ONE (09:12)
[2021-04-14] MEDS ORDERED: fentaNYL 100 MCG/2 ML INJ ONE (09:12)
[2021-04-14] MEDS ORDERED: NITROGLYCERIN SYRINGE 3 ML ONE (09:12)
[2021-04-14] MEDS ORDERED: SODIUM CHLORIDE 0.9% 500 ML 500 ML ONE (09:22)
[2021-04-14] MEDS: VERAPAMIL 5 MG/2 ML INJ ONE ×2 (09:42→09:43)
--- NOTE | 2021-04-14 10:26 | Cardiac Catherization Report ---
DATE OF PROCEDURE: 04/14/2021 CARDIAC CATHETERIZATION REFERRING PHYSICIAN: Hospitalist lubna. PROTOCOL: The patient was brought to the catheter finisher and inspector in a postabsorptive state, given 2 mL of 2% lidocaine used to anesthetize the right wrist and a 6-Czech sheath to cannulate the right radial artery via modified Seldinger technique. All exchanges were performed to exchange a J-tip guidewire. JL3.5 catheter used to engage the left main. No dampening or ventricularization. Cineangiography performed in all projections. Next, JR4 catheter was used to cross the aortic valve under fluoroscopic guidance. Left ventriculography was performed in 30-degree MARY projections via hand injections, catheter flushed. Manual pullback performed with continuous pressure monitoring. Catheter was engaged in the right coronary. Cineangiography performed in multiple projections. The catheter was removed from the body over wire, sheath removed. Manual pressure used to achieve hemostasis. I directly supervised the administration of moderate sedation with fentanyl and Versed from 9:30 a.m. to 9:58 a.m. No immediate complications were identified. DATA: Aortic pressure is 120/80, LV pressure is 120, LVEDP of 18 mmHg. Left ventriculography reveals normal systolic performance, estimated ejection fraction 55-60%. No evidence of aortic stenosis. CORONARY ANATOMY: This is a right dominant system. Right coronary is a large vessel, courses AV groove, distally bifurcates in the posterior descending and posterolateral branches. No discrete stenoses identified. Left main without significant disease, bifurcates in left anterior descending and left circumflex. Left circumflex is moderate-sized vessel, courses AV groove. No significant disease. LAD is a moderate-sized vessel, courses in the anterior interventricular groove, wraps around the apex. No significant disease. Normal left ventricular systolic performance, estimated ejection fraction 55-60%. No evidence of aortic stenosis. The patient remained in normal sinus rhythm throughout the procedure. CONCLUSIONS: 1. No angiographic evidence of significant epicardial coronary artery disease in this right dominant system. 2. Normal left ventricular systolic performance, estimated ejection fraction of 55-60%. 3. No evidence of aortic stenosis. 4. Normal LVEDP. The patient is clinically stable, chest pain-free. Etiology of his chest pain is unclear, maybe GI related versus microvascular angina. If he continues to have any chest pain, could consider adding Ranexa. Optimize electrolytes. Recheck BMP later today. Stable cardiac status. Discussed with family as well. TID: [id number] RECEIPT: [id number] SBM/HOW
--- NOTE | 2021-04-14 10:58 | Electrocardiograph Report ---
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
[2021-04-14] MEDS ORDERED: POTASSIUM CHLORIDE 10 MEQ 10 MEQ/100 ML BAG IV SCH (11:00)
[2021-04-14] MEDS: INSULIN NPH/REGULAR 70/30 INJ SUB-Q SCH (11:02)
[2021-04-14] MEDS: INSULIN REGULAR, HUMAN 100 UNITS/1 ML SUB-Q SCH (11:02)
[2021-04-14] MEDS: hydroCHLOROthiazide 12.5 MG CAP PO SCH (11:04)
[2021-04-14] MEDS: ASPIRIN EC 325 MG TAB PO SCH (11:04)
[2021-04-14] MEDS: amLODIPine 10 MG TAB PO SCH (11:04)
[2021-04-14] MEDS: VALSARTAN 160MG TAB PO SCH (11:04)
[2021-04-14] MEDS: PANTOPRAZOLE 40 MG TAB PO SCH (11:05)
--- NOTE | 2021-04-14 11:12 | Discharge Summary ---
Providers - Providers Date of Admission: 04/12/21 05:36 Date of discharge: 04/14/21 Attending physician: JOSELUIS NUÑEZ MD 04/12/21 Consult to Cardiac Rehabilitation [CONS] Routine Reason For Exam: Phase I 04/12/21 05:36 Consult to Dietitian/Nutrition [CONS] Routine Physician Instructions: Reason For Exam: Reason for Consult: Diet education 04/12/21 08:41 Consult to Physician [CONS] Routine Comment: Consulting Provider: RADHA MILLER Physician Instructions: Reason For Exam: Concern for ACS + chest pain Primary care physician: TOPPER PACKER Hospitalization Reason for admission: Acute chest pain Condition: Fair Pertinent studies: Reviewed. Procedures: Myocardial perfusion stress test; left heart catheterization Hospital course: The patient is a 55-year-old male past medical history hypertension, insulin-dependent type 2 diabetes mellitus, and morbid obesity who presented with chest pain and an episode of syncope. The patient complained of having 10/10 left-sided chest pain accompanied with shortness of breath, nausea, and vomiting. The patient had negative troponins. Cardiology was consulted for further management. A TTE was performed on 04/12/2021 revealing an EF of 45-50% with hypokinesis in the basal inferior septal wall, mild concentric LVH, Doppler flow pattern suggesting impaired LV relaxation, and a dilated RV. Patient underwent a myocardial perfusion stress test on 04/13/2021 revealed an abnormal stress test. The decision was made to perform a left heart catheterization (04/14/2021) was unremarkable for ischemia. The patient was counseled about the importance of medication compliance in the setting of his hypertension and type 2 diabetes. Patient will continue to follow with his urgent care technician in the outpatient setting. The patient was hypokalemic and required electrolyte repletion prior to discharge. Patient is medically cleared for discharge. Disposition: 01 HOME / SELF CARE / HOMELESS Final Discharge Diagnosis (Prints w/discharge instructions): Acute chest pain, hypertension, insulin-dependent type 2 diabetes mellitus, morbid obesity, hypokalemia Time spent for discharge: 45 min Core Measure Documentation - Palliative Care Palliative Care/ Comfort Measures: Not Applicable - Core Measures Any of the following diagnoses?: none Exam - Constitutional Vitals: Temp Pulse Resp BP Pulse Ox 97.3 F L 62 18 142/73 95 04/14/21 07:26 04/14/21 07:26 04/14/21 07:26 04/14/21 07:26 04/14/21 07:26 General appearance: Present: no acute distress, well-nourished, obese - EENT Eyes: Present: PERRL, EOM intact ENT: hearing intact, clear oral mucosa, dentition normal - Neck Neck: Present: supple, normal ROM - Respiratory Respiratory effort: normal Respiratory: bilateral: CTA - Cardiovascular Rhythm: regular Heart Sounds: Present: S1 & S2 - Extremities Extremities: no ischemia, pulses intact, pulses symmetrical, No edema, normal temperature, normal color, Full ROM Peripheral Pulses: within normal limits - Abdominal General gastrointestinal: Present: soft, non-tender, non-distended, normal bowel sounds Male genitourinary: Present: deferred - Rectal Rectal Exam: deferred - Integumentary Integumentary: Present: clear, warm, dry - Musculoskeletal Musculoskeletal: strength equal bilaterally - Psychiatric Psychiatric: appropriate mood/affect, intact judgment & insight, memory intact, cooperative - Neurologic Neurologic: CNII-XII intact, moves all extremities - Allied Health Allied health notes reviewed: nursing Plan Activity: advance as tolerated Diet: low salt, diabetic Additional Instructions: The patient is a 55-year-old male past medical history hypertension, insulin-dependent type 2 diabetes mellitus, and morbid obesity who presented with chest pain and an episode of syncope. The patient complained of having 10/10 left-sided chest pain accompanied with shortness of breath, nausea, and vomiting. The patient had negative troponins. Cardiology was consulted for further management. A TTE was performed on 04/12/2021 revealing an EF of 45-50% with hypokinesis in the basal inferior septal wall, mild concentric LVH, Doppler flow pattern suggesting impaired LV relaxation, and a dilated RV. Patient underwent a myocardial perfusion stress test on 04/13/2021 revealed an abnormal stress test. The decision was made to perform a left heart catheterization (04/14/2021) was unremarkable for ischemia. The patient was counseled about the importance of medication compliance in the setting of his hypertension and type 2 diabetes. Patient will continue to follow with his urgent care technician in the outpatient setting. The patient was hypokalemic and required electrolyte repletion prior to discharge. Patient is medically cleared for discharge. Care Plan Goals: Patient is medically clear for discharge. Assessment: The patient is a 55-year-old male past medical history hypertension, insulin- dependent type 2 diabetes mellitus, and morbid obesity who presented with chest pain and an episode of syncope. The patient complained of having 10/10 left- sided chest pain accompanied with shortness of breath, nausea, and vomiting. The patient had negative troponins. Cardiology was consulted for further management. A TTE was performed on 04/12/2021 revealing an EF of 45-50% with hypokinesis in the basal inferior septal wall, mild concentric LVH, Doppler flow pattern suggesting impaired LV relaxation, and a dilated RV. Patient underwent a myocardial perfusion stress test on 04/13/2021 revealed an abnormal stress test. The decision was made to perform a left heart catheterization (04/14/2021) was unremarkable for ischemia. The patient was counseled about the importance of medication compliance in the setting of his hypertension and type 2 diabetes. Patient will continue to follow with his urgent care technician in the outpatient setting. The patient was hypokalemic and required electrolyte repletion prior to discharge. Patient is medically cleared for discharge. Follow up with: PRIMARY CARE, [Primary Care Provider] - 7 Days Forms: Work/School Release Form Prescriptions: AtorvaSTATin [Lipitor] 40 mg PO QHS #30 tablet amLODIPine 10 mg PO DAILY #30 tablet Valsartan [Diovan] 160 mg PO QDAY #30 tablet Insulin NPH/Regular [NovoLIN 70/30] 30 unit SUB-Q BIDDIAB #2 vial
--- NOTE | 2021-04-14 11:32 | Progress Note ---
Assessment and Plan Patient is 55-year-old male with a past medical history of hypertension and diabetes who came to the ED with a complaint of chest pain and syncope with falls which started when getting out of bed 1 day prior to admission Atypical chest pain Hypertension Diabetes Elevated D-dimer-CT negative for PE Hypokalemia Echo 04/12/2021-EF 45 to 50%. There is hypokinesis in the basal inferior septal wall. Mild concentric LVH. Transmitral Doppler flow pattern suggests impaired LV relaxation. Right ventricle is dilated. Right ventricular systolic function is no pericardial effusion Cardiac cath 04/14/2021-no angiographic evidence of significant epicardial coronary artery disease. Estimated EF 55 to 60%. No evidence of aortic stenosis. Normal LVEDP Lexiscan MPI stress test 04/13/2021-abnormal stress test Echo 12/17/2017-EF greater than 55%. Right ventricular systolic function is normal. Mild aortic regurgitation. Mild tricuspid regurgitation. Exercise stress test 03/12/2007: Negative nonischemic exercise stress test characterized by 1) adequate exercise capacity. The subject achieving 96% of his maximum predicted heart rate at an external work load of 11.8 mets. 2) Normal heart rate and BP response. 3) Absence of ischemic symptoms or diagnostic repolarization abnormalities. 4) Minor ventricular ectopy as described Plan: Continue amlodipine, valsartan, hydrochlorothiazide, statin, aspirin Patient had normal cardiac cath. Patient found to be hypokalemic this morning. Replace potassium. Repeat BMP this afternoon Cardiac status otherwise stable. If patient's potassium is within normal limits after BMP patient may be discharged from a cardiac perspective Discussed plan of care with patient who verbalized and acknowledged understanding and agreement Patient has a follow-up appointment with Dr. Zarate, [facility] learning development specialist, on 05/02/2021 at 10:45 AM in our [place] location. Phone #[phone] Patient seen in conjunction with Dr. Zarate who agrees with this plan of care - Patient Problems (1) ACS (acute coronary syndrome) Current Visit: Yes Status: Acute (2) Diabetes Current Visit: Yes Status: Acute (3) Hypertension Current Visit: Yes Status: Acute (4) Syncope Current Visit: Yes Status: Acute Subjective Date of service: 04/14/21 Principal diagnosis: chest pain Interval history: Patient for cardiac cath this a.m. Patient was not on the monitor Objective Vital Signs Temp Pulse Resp BP Pulse Ox 04/14/21 07:26 97.3 F L 62 18 142/73 95 04/14/21 03:36 98.0 F 57 L 16 142/72 95 04/14/21 03:24 97 04/14/21 01:43 18 04/14/21 01:13 20 04/13/21 22:51 97.6 F 68 16 118/67 96 04/13/21 22:00 74 04/13/21 21:06 20 04/13/21 20:36 20 04/13/21 19:44 98.0 F 75 16 138/80 97 04/13/21 16:00 98 04/13/21 15:35 97.7 F 88 18 163/81 96 04/13/21 11:33 97.9 F 17 153/80 04/13/21 11:29 72 - Physical Examination General: No Apparent Distress HEENT: Positive: PERRL Neck: Positive: trachea midline Cardiac: Positive: Reg Rate and Rhythm Lungs: Positive: Normal Breath Sounds Neuro: Positive: Grossly Intact Abdomen: Positive: Soft, Active Bowel Sounds Skin: Negative: Rash, Suspicious Lesions, Ulceration Extremities: Present: upper extr. pulses. Absent: edema - Labs and Meds Coagulation 04/14/21 Range/Units 05:46 PT 13.6 (12.2-14.9) Sec. INR 0.94 (0.87-1.13) CBC 04/14/21 Range/Units 05:46 WBC 8.0 (4.5-11.0) K/mm3 RBC 4.64 (3.65-5.03) M/mm3 Hgb 13.3 (11.8-15.2) gm/dl Hct 39.0 (35.5-45.6) % Plt Count 197 (140-440) K/mm3 Lymph # (Auto) 2.6 (1.2-5.4) K/mm3 Meigs # (Auto) 0.6 (0.0-0.8) K/mm3 Eos # (Auto) 0.3 (0.0-0.4) K/mm3 Baso # (Auto) 0.1 (0.0-0.1) K/mm3 Comprehensive Metabolic Panel 04/14/21 Range/Units 05:46 Sodium 144 D (137-145) mmol/L Potassium 2.8 L* D (3.6-5.0) mmol/L Chloride 108.0 H (98-107) mmol/L Carbon Dioxide 22 (22-30) mmol/L BUN 7 L (9-20) mg/dL Creatinine 0.7 L (0.8-1.3) mg/dL Glucose 125 H (75-100) mg/dL Calcium 8.3 L (8.4-10.2) mg/dL - Imaging and Cardiology Echo: report reviewed Cardiac cath: report reviewed - Telemetry EKG Rhythm: Sinus Rhythm - EKG Sinus rhythms and dysrhythmias: sinus rhythm AV and intraventricular conduction: right bundle branch block, left anterior fascicular
[2021-04-14] MEDS ORDERED: HYDROcodone/ACETAMINOPHEN 5-325 MG TAB PO PRN (12:00)
[2021-04-14] MEDS ORDERED: traMADol 50 MG TAB PO PRN (14:00)
[2021-04-14 14:41] LABS: BUN/Creatinine Ratio 6; Blood Urea Nitrogen 6 mg/dL (9-20); Hemolysis Index 11
== END 2021-04-14 16:29 | disposition home or self-care (01) | DRG 287 ==
LOC: ED 02:14 → 4A 05:36
PROVIDERS: ADMIT Hospitalist; ATTEND Student in an Organized Health Care Education/Training Program
PROC: 4A023N7 Measurement of Cardiac Sampling and Pressure, Left Heart, Percutaneous Approach (ICD-10-PCS; principal; 2021-04-14)
PROC: B2111ZZ Fluoroscopy of Multiple Coronary Arteries using Low Osmolar Contrast (ICD-10-PCS; 2021-04-14)
PROC: B2151ZZ Fluoroscopy of Left Heart using Low Osmolar Contrast (ICD-10-PCS; 2021-04-14)
DX: R07.89 Other chest pain (principal); R55 Syncope and collapse; I10 Essential (primary) hypertension; E11.9 Type 2 diabetes mellitus without complications; Z87.891 Personal history of nicotine dependence; Z83.3 Family history of diabetes mellitus; E66.01 Morbid (severe) obesity due to excess calories; Z68.39 Body mass index [BMI] 39.0-39.9, adult; E87.6 Hypokalemia; Z20.822 Contact with and (suspected) exposure to COVID-19
CPT/HCPCS: 36415; 71275; 78452; 80048; 80061; 81001; 82550; 82553; 82805; 82962; 83036; 84484; 85025; 85379; 85610; 86850; 86900; 86901; 93005; 93010; 93017; 93306; 93458; 93970; G0378; J1815; J3490; Q0162; Q0177; Q9967; A9502; C1894; C8929; J1170; J1644; J2250; J2270; J2405; J2785; J3010; J7030; J7040; U0003